=== PATIENT | female | born 1970 | race Caucasian/White ===

== ENCOUNTER 2022-07-27 16:56 | Inpatient (IN) | payer OTHER ==
[~2022-07-27] VITALS: Ht 160 cm; Wt 82.8 kg
[~2022-07-27 16:56] MED LIST: ALBIPROI INH; ALPR1 PO; AZIT500; BUPR100; BUPR150ER PO; BUPR75 PO; CARV3.125 PO; CEPH500 PO; CYCL10 PO; Carvedilol6.25 MG PO; DIVA500ER; DULO30; DULO60 PO; GABA300 PO; HYDACE10B; HYDACE5; HYDACE5 PO; HYDACE5325 PO; LOSARTAN POTASS25 MG PO; META800 PO; Norco 10-325 T1 EACH PO; OLAN5 PO; ONDA4ODT MM; OSEL75CA PO; PARO20; PARO25; PARO30; PRED10 PO; PROACE100 PO; Percocet 5-3251 EACH PO; ROFE25 PO; RXHYDACE PO; RXPROACE PO; RXPROM25S PR; SPACER IH; SPIR25 PO; SULTRIDS PO; TRAM50 PO; VENL75ER PO; Vistaril25 MG PO
[2022-07-27 18:24] LABS: Ethanol (Alcohol), Blood, Med <3 mg/dL; Free Thyroxine 0.79 ng/dL (0.70-1.60); Salicylate <1.7 mg/dL (2.8-20.0)
[2022-07-27 18:27] LABS: Acetaminophen, Random <2.0 ug/mL (10.0-30.0); Alanine Aminotransfer (ALT/SGP 23 U/L (12-78); Albumin, Blood 3.2 g/dL (3.4-5.0); Albumin/Globulin Ratio 0.9 (0.8-1.8); Alk Phos 90 U/L (50-136); Anion Gap 7 mmol/L (6-16); Aspartate Aminotrans (AST/SGOT 22 U/L (12-37); Bilirubin, Total 0.3 mg/dL (0.1-1.0); Blood Urea Nitrogen 16 mg/dL (8-24); Bun/Creatinine Ratio 19.6 (12.0-20.0); CO2, Blood 26 mmol/L (21-32); Calcium, Blood 8.8 mg/dL (8.5-10.1); Chloride, Blood 104 mmol/L (98-108); Creatinine, Blood 0.82 mg/dL (0.40-1.00); Globulin, Blood 3.4 g/dL (2.2-4.0); Glomerular Filtration Rate 86 (60-); Glucose, Blood 205 mg/dL (70-99); Potassium, Blood 4.3 mmol/L (3.5-5.5); Sodium, Blood 137 mmol/L (136-145); Total Protein, Blood 6.6 g/dL (6.4-8.2)
[2022-07-27 18:34] LABS: BASOPHILS PERCENT AUTO 1 % (0-2); EOSINOPHILS PERCENT AUTO 2 % (0-6); Hematocrit 40.4 % (33.0-51.0); Hemoglobin 12.5 g/dL (11.5-16.0); IMMATURE GRAN ABSOLUTE AUTO 0.05 K/mm3 (0.00-0.10); IMMATURE GRAN PERCENT AUTO 1 % (0-1); LYMPHOCYTES ABSOLUTE AUTO 2.76 K/mm3 (0.84-5.20); LYMPHOCYTES PERCENT AUTO 30 % (21-46); MONOCYTES ABSOLUTE AUTO 0.65 K/mm3 (0.16-1.47); MONOCYTES PERCENT AUTO 7 % (4-13); Mean Corpuscular HGB 25.1 pg (26.0-34.0); Mean Corpuscular HGB Conc 30.9 g/dL (31.5-36.5); Mean Corpuscular Volume 81 fL (80-100); Mean Platelet Volume 8.8 fL (9.1-12.4); NEUTROPHILS ABSOLUTE AUTO 5.61 K/mm3 (1.96-9.15); NEUTROPHILS PERCENT AUTO 60 % (41-73); Platelet Count 431 K/mm3 (150-400); RDW Coefficient Variation 15.8 % (11.7-14.2); RDW Standard Deviation 45.8 fL (35.1-46.3); Red Blood Cell Count 4.99 M/mm3 (3.80-5.20); White Blood Cell Count 9.37 K/mm3 (4.00-11.30)
[2022-07-27 20:03] LABS: Influenza A, PCR NEGATIVE (NEGATIVE); Influenza B, PCR NEGATIVE (NEGATIVE); Resp Syncytial Virus, PCR NEGATIVE (NEGATIVE); SARS-Cov-2 (COVID-19) PCR, MMC NEGATIVE (NEGATIVE)
[2022-07-27 21:12] LABS: PCO2 Venous 56.7 mmHg (38-42)
[2022-07-27 21:13] LABS: Base Excess Venous -1.1 mmol/L
[2022-07-27 21:14] LABS: pH Blood Venous 7.27 (7.34-7.37)
[2022-07-27 21:35] LABS: Glucose, Blood 179 mg/dL (70-99)
[2022-07-27 22:27] LABS: Glucose, Blood 143 mg/dL (70-99)
[2022-07-27 23:03] LABS: Glucose, Blood 125 mg/dL (70-99)
[2022-07-28 00:32] LABS: PCO2 Arterial 44.2 mmHg (35-45); PO2 Arterial 69.8 mmHg (80-100); pH Blood Arterial 7.36 (7.35-7.45)
--- NOTE | 2022-07-28 01:16 | NUR ---
PT ADMIT TO ICU 6: PT ADMISSION TO ICU 6 FROM ER; PT ARRIVED TO THE UNIT VIA GURNEY FROM THE ER AT 2234. THE PT HAD LEVOPHED RUNNING AT 1.33 MCG/KG/MIN AND NS GTT AT 100 MLS/HR UPON ARRIVAL. THE PT A&O X 4, BUT IS PERIODICALLY CONFUSED; REORIENTED EASILY. THE PT IS VERY DROWSY AND IS IN AND OUT OF SLEEP AT THIS TIME. THE PT SPEECH IS SLOW/SLURRED BUT APPROPRIATE. THE PT IS CALM AND COOPERATIVE WITH STAFF. PT EDUCATED ON THE 2 MD HOLD. THE PT IS CURRENTLY ON RA WITH RR 14-16 AND SPO2 92<; PT OCCASIONALLY DESATS TO 86-89 BUT RECOVERS QUICKLY. PT HAS EVEN, UNLABORED BREATHING PATTERN AT THIS TIME. PT HAS CONTINUOUS MANAGER DOMESTIC IN PLACE; HR IN THE 60'S, SBP 90-100'S, AND MAP 65<. LEVOPHED PUT ON SB AFTER PT TRANSFERRED TO NEW BED. PT HAS A SOFT, ROUND, NON-TENDER ABD WITH HYPOACTIVE BS PRESENT. PT COMPLAINS OF SLIGHT NAUSEA THAT SUBSIDES AND THEN RETURNS PERIODICALLY, BUT NO ACTIVE VOMITING AT THIS TIME. PT HAS WARM EXTREMITIES AND PPP X 4. PT HAS NOT BEEN ABLE TO GIVE A URINE SAMPLE, WILL CONTINUE TO ASSESS. PT EMOTIONAL AND EXPRESSES SADNESS AND DISAPPOINTMENT DIRECTED AT HERSELF; COMFORT MEASURES PROVIDED FOR PT. PT EXPRESSES CONCERNS TO THIS RN TO BE ABLE TO CALL HER EMPLOYER IN THE MORNING TO LET THEM KNOW ABOUT HER HOSPITILIZATION. PT BELONGINGS LOCKED UP UPON ARRIVAL. WILL CONTINUE TO MONITOR.
[2022-07-28 03:18] LABS: BASOPHILS PERCENT AUTO 1 % (0-2); EOSINOPHILS ABSOLUTE AUTO 0.26 K/mm3 (0.00-0.68); EOSINOPHILS PERCENT AUTO 3 % (0-6); Hematocrit 35.7 % (33.0-51.0); Hemoglobin 11.3 g/dL (11.5-16.0); IMMATURE GRAN ABSOLUTE AUTO 0.06 K/mm3 (0.00-0.10); IMMATURE GRAN PERCENT AUTO 1 % (0-1); LYMPHOCYTES ABSOLUTE AUTO 3.41 K/mm3 (0.84-5.20); LYMPHOCYTES PERCENT AUTO 34 % (21-46); MONOCYTES ABSOLUTE AUTO 0.62 K/mm3 (0.16-1.47); MONOCYTES PERCENT AUTO 6 % (4-13); Mean Corpuscular HGB 25.6 pg (26.0-34.0); Mean Corpuscular HGB Conc 31.7 g/dL (31.5-36.5); Mean Corpuscular Volume 81 fL (80-100); Mean Platelet Volume 8.6 fL (9.1-12.4); NEUTROPHILS PERCENT AUTO 56 % (41-73); Platelet Count 350 K/mm3 (150-400); RDW Coefficient Variation 15.8 % (11.7-14.2); RDW Standard Deviation 46.6 fL (35.1-46.3); Red Blood Cell Count 4.41 M/mm3 (3.80-5.20); White Blood Cell Count 10.15 K/mm3 (4.00-11.30)
[2022-07-28 03:29] LABS: Source, Urine Clean Catch
[2022-07-28 03:31] LABS: Bilirubin, Urine Neg (Neg); Blood, Urine Neg (Neg); Color, Urine Yellow (P-Yellow); Glucose Qualitative, Urine 1+ (Neg); Ketones, Urine Neg (Neg); Leukocyte Esterase, Urine Neg (Neg); Nitrite, Urine Neg (Neg); Protein, Urine Neg (Neg); Urobilinogen, Urine NORM (Normal)
[2022-07-28 03:33] LABS: Appearance, Urine Clear (Clear)
[2022-07-28 03:35] LABS: Albumin, Blood 2.7 g/dL (3.4-5.0); Anion Gap 4 mmol/L (6-16); Blood Urea Nitrogen 16 mg/dL (8-24); Bun/Creatinine Ratio 23.3 (12.0-20.0); CO2, Blood 27 mmol/L (21-32); Calcium, Blood 8.7 mg/dL (8.5-10.1); Chloride, Blood 111 mmol/L (98-108); Creatinine, Blood 0.69 mg/dL (0.40-1.00); Glomerular Filtration Rate 104 (60-); Glucose, Blood 121 mg/dL (70-99); Phosphorus, Blood 3.3 mg/dL (2.5-4.9); Potassium, Blood 4.5 mmol/L (3.5-5.5); Sodium, Blood 142 mmol/L (136-145)
[2022-07-28 05:12] LABS: U Amphetamine Screen DETECTED; U Barbituate Screen Not Detected; U Benzodiazapine Screen Not Detected; U Buprenorphine Screen DETECTED; U Cannabinoids Screen Not Detected; U Cocaine Screen Not Detected; U Methadone Screen Not Detected; U Methamphetamine Screen DETECTED; U Opiates Screen Not Detected; U Oxycodone Screen Not Detected; U Phencyclidine Screen Not Detected; U Propoxyphene Screen Not Detected
--- NOTE | 2022-07-28 06:10 | NUR ---
SHIFT SUMMARY: NO ACUTE CHANGES OVER NIGHT. THE PT REMAINS A&O 3-4; PT CONFUSED ABOUT DAY/TIME BUT REORIENTS EASILY. PT CONTINUES TO BE COOPERATIVE WITH CARE. PT WAS ABLE TO VOID ON THE BEDSIDE COMMODE THIS AM. PT HAS PASSED BEDSIDE SWALLOW EVAL AND HAS REGULAR DIET ORDERS IN PLACE. PT IN AND OUT OF SLEEP THROUGHOUT THE NIGHT. LEVOPHED SB SINCE COMING TO THE UNIT; SBP 90-110'S, HR 50-60, AND MAP 65<. PT REMAINS ON RA WITH SPO2 92< AND RR 14-16. POISEN CONTROL UPDATED ON PT'S STATUS BY THIS RN. WILL CONTINUE TO MONITOR UNTIL ONCOMING RN ARRIVES.
--- NOTE | 2022-07-28 18:36 | NUR ---
SUMMARY NEURO: WNL LUNGS: WNL CARCIAC: SINUS NIKOLAI 40-60'S. GI: WNL : WNL PSYCHOSOCIAL: SI RISK. INTERMITTENT TEARFULNESS. SITTER AT BEDSIDE. POISON CONTROL FOLLOWING, STATES WILL CALL IN AM.
--- NOTE | 2022-07-28 19:14 | NUR ---
UPDATE: REGINO, PT'S "RIANA", STOPPED BY AT 191 TO DROP OFF A BOOK AND PAIR OF GLASSES AND REQUESTED TO SEE PT. THIS RN NOTIFIED REGINO OF VISITING HOURS. PT STATED THAT HE " LEFT HER AT THE HOSPITAL" AFTER HER OD AND THAT SHE "DOESN'T KNOW HOW SHE FEELS ABOUT HIM GETTING ANY INFORMATION ABOUT HER STATUS. AT THIS TIME, REGINO CANNOT RECIEVE UPDATES PER PT.
--- NOTE | 2022-07-28 22:46 | NUR ---
ASSUMPTION OF CARE/ASSESSMENT: ASSUMED CARE OF PT AT 1900. PT IS A&O X 4; PERIODICALLY CONFUSED ABOUT EVENTS THAT LEAD HER TO HER HOSPITILIZATION BUT IS EASILY REORIENTED. THE PT EXPRESSES FEAR FOR HER SAFETY AND THIS RN EXPLAINED TO HER THE SAFETY MEASURES OF THE UNIT. PT EMOTIONAL ABOUT HER SITUATION AND HER STATUS WITH HER FIANCE. PT STATING THAT SHE IS SEEING "POWER TOOLS OUTSIDE THE DOOR AND NO OTHER PT'S" THIS IS MAKING THE PT UNEASY AND IS WORRIED THE STAFF IS NOT TELLING HER THE WHOLE STORY. PT IS REORIENTED AND CALMS DOWN. PT ON RA WITH CLEAR LUNG SOUNDS THROUGHOUT WITH SPO2 92< AND RR 16-18. PT HR IN THE 50'S WITH SBP 110'S, MAP 65<; CONTINUOUS PIPE SMOKER MACHINE OPERATOR IN PLACE. PT HAS REG DIET WITH SOFT, ROUND ABD AND HYPERACTIVE BS IN ALL FOUR QUADRANTS. PT USING BEDSIDE COMMODE FOR VOIDING. WARM EXTREMIITES WITH PPP X 4. CALL LIGHT IN REACH, WILL CONTINUE TO MONITOR.
[2022-07-29 03:42] LABS: BASOPHILS ABSOLUTE AUTO 0.09 K/mm3 (0.00-0.23); BASOPHILS PERCENT AUTO 1 % (0-2); EOSINOPHILS ABSOLUTE AUTO 0.21 K/mm3 (0.00-0.68); EOSINOPHILS PERCENT AUTO 2 % (0-6); Hematocrit 35.5 % (33.0-51.0); Hemoglobin 11.2 g/dL (11.5-16.0); IMMATURE GRAN ABSOLUTE AUTO 0.09 K/mm3 (0.00-0.10); IMMATURE GRAN PERCENT AUTO 1 % (0-1); LYMPHOCYTES ABSOLUTE AUTO 2.21 K/mm3 (0.84-5.20); LYMPHOCYTES PERCENT AUTO 22 % (21-46); MONOCYTES ABSOLUTE AUTO 0.58 K/mm3 (0.16-1.47); MONOCYTES PERCENT AUTO 6 % (4-13); Mean Corpuscular HGB 25.4 pg (26.0-34.0); Mean Corpuscular HGB Conc 31.5 g/dL (31.5-36.5); Mean Corpuscular Volume 81 fL (80-100); Mean Platelet Volume 8.7 fL (9.1-12.4); NEUTROPHILS ABSOLUTE AUTO 6.69 K/mm3 (1.96-9.15); NEUTROPHILS PERCENT AUTO 68 % (41-73); NRBC ABSOLUTE 0.02 K/mm3 (0.00-0.02); NRBC Auto 0.2 /100 WBC (0.0-0.2); Platelet Count 327 K/mm3 (150-400); RDW Coefficient Variation 15.5 % (11.7-14.2); RDW Standard Deviation 45.1 fL (35.1-46.3); Red Blood Cell Count 4.41 M/mm3 (3.80-5.20); White Blood Cell Count 9.87 K/mm3 (4.00-11.30)
[2022-07-29 04:04] LABS: Bun/Creatinine Ratio 15.5 (12.0-20.0); Calcium, Blood 8.5 mg/dL (8.5-10.1); Creatinine, Blood 0.71 mg/dL (0.40-1.00); Potassium, Blood 4.2 mmol/L (3.5-5.5)
--- NOTE | 2022-07-29 06:19 | NUR ---
SHIFT SUMMARY: NO ACUTE CHANGES THIS SHIFT. PT NEURO STATUS REMAINS THE SAME; PT DISPLAYS PERIODS OF CONFUSION THROUGHOUT THE NIGHT THAT IS ACCOMPANIED BY EMOTIONS OF FEAR AND SADNESS. PT IS EASILY CONSOLIBLE. PT CONTINUOUS TO BE COOPERATIVE WITH CARE. HR IN THE 50-60'S WIHT A FEW INSTANCES WHERE IS DROPPED DOWN IN THE 40'S BUT RECOVERED QUICKLY BACK TO THE 50'S. PT SBP 120'S AND MAP 65<. PT HAS NS GTT 100 MLS/HR THROUGHOUT THE SHIFT. WILL CONTINUE TO MONITOR UNTIL ONCOMING RN ARRIVES.
--- NOTE | 2022-07-29 07:00 | NUR ---
Assumed care of pt at 0700 Pt resting. Is on suicide precautions with sitter at bedside and camera on to maintain safety. Continues to need reorientation after waking but reportedly reorients quickly. Expect psych MD hinds today. RN to continue to monitor.
--- NOTE | 2022-07-29 14:57 | NUR ---
0815 DR. IZAGUIRRE TO BEDSIDE. REPORTED PT'S MILD NAUSEA, MD WILL ENTER ORDERS. 0930 DR. RODRIGUEZ TO BEDSIDE. NO NEW ORDERS AT THIS TIME. HE WOULD LIKE TO BE NOTIFIED AFTER NEXT POISON CONTROL CALL. 1200 POISON CONTROL UPDATED WITH CURRENT V/S, NEURO STATUS AND LABS. DISCUSSED HOME MEDICATIONS AND RECEIVED GUIDANCE ON RESTARTING MEDS. DISCUSSED RECOMMENDATIONS WITH DR. RODRIGUEZ, HE WILL AWAIT DR. ALEXANDER'S EVALUATION BEFORE STARTING HOME MEDS. POISON CONTROL WILL CALL FOR UPDATE AT 1800. HAND TUBE WINDER UPDATED WITH PLAN. BROTHER AT BEDSIDE TO VISIT X3 TODAY. RN TO CONTINUE TO MONITOR.
--- NOTE | 2022-07-29 16:01 | NUR ---
DR. ALEXANDER AT BEDSIDE
--- NOTE | 2022-07-29 17:39 | NUR ---
END OF SHIFT SUMMARY PT SLEPT MOST OF SHIFT. ALERT AND ORIENTED X4. NO BEHAVIORS NOTED. SITTER AT BEDSIDE DURING HIGH SUICIDE PRECAUTIONS. EVERY 2 HOUR NEURO CHECKS D/C'D BY MD. 02SAT > 95% ON ROOM AIR DECLINED BREAKFAST AND LUNCH. ATE 30% OF DINNER. VOIDS WITH STANBY ASSIST TO THE COMMODE. SKIN INTACT NS @ 100ML/HR INTO PIV. BROTHER IN TO VISIT THROUGHOUT THE DAY. ALSO PRESENT DURING VISIT WITH DR. ALEXANDER. SUICIDE PRECAUTIONS D/C'D. PT REMAINS ON 2 MD HOLD UNTIL TOMORROW. STATUS CHANGED TO PCU. POISON CONTROL WILL CONTINUE TO FOLLOW EVERY 4-6 HOURS.
[2022-07-30 04:58] LABS: BASOPHILS ABSOLUTE AUTO 0.07 K/mm3 (0.00-0.23); BASOPHILS PERCENT AUTO 1 % (0-2); EOSINOPHILS ABSOLUTE AUTO 0.21 K/mm3 (0.00-0.68); EOSINOPHILS PERCENT AUTO 2 % (0-6); Hematocrit 35.9 % (33.0-51.0); Hemoglobin 11.2 g/dL (11.5-16.0); IMMATURE GRAN ABSOLUTE AUTO 0.13 K/mm3 (0.00-0.10); IMMATURE GRAN PERCENT AUTO 1 % (0-1); LYMPHOCYTES PERCENT AUTO 21 % (21-46); MONOCYTES ABSOLUTE AUTO 0.66 K/mm3 (0.16-1.47); MONOCYTES PERCENT AUTO 7 % (4-13); Mean Corpuscular HGB 25.1 pg (26.0-34.0); Mean Corpuscular HGB Conc 31.2 g/dL (31.5-36.5); Mean Corpuscular Volume 80 fL (80-100); Mean Platelet Volume 9.3 fL (9.1-12.4); NEUTROPHILS ABSOLUTE AUTO 6.75 K/mm3 (1.96-9.15); NEUTROPHILS PERCENT AUTO 68 % (41-73); NRBC ABSOLUTE 0.02 K/mm3 (0.00-0.02); NRBC Auto 0.2 /100 WBC (0.0-0.2); Platelet Count 324 K/mm3 (150-400); RDW Coefficient Variation 15.7 % (11.7-14.2); RDW Standard Deviation 45.3 fL (35.1-46.3); Red Blood Cell Count 4.47 M/mm3 (3.80-5.20); White Blood Cell Count 9.92 K/mm3 (4.00-11.30)
[2022-07-30 05:22] LABS: Albumin, Blood 2.7 g/dL (3.4-5.0); Albumin/Globulin Ratio 0.8 (0.8-1.8); Bilirubin, Total 0.4 mg/dL (0.1-1.0); Bun/Creatinine Ratio 11.8 (12.0-20.0); Calcium, Blood 8.2 mg/dL (8.5-10.1); Creatinine, Blood 0.76 mg/dL (0.40-1.00); Globulin, Blood 3.3 g/dL (2.2-4.0); Potassium, Blood 3.6 mmol/L (3.5-5.5)
--- NOTE | 2022-07-30 05:55 | NUR ---
SHIFT SUMMARY PATIENT IS ALERT AND ORIENTED X4. PLEASANT AND COOPERATIVE WITH CARE. 02 SATS 93% ON 2L VIA NC WHILE SLEEPING, LS CLEAR AND DENIES SOB. HR SB-SR 50-60s, BP STABLE, DENIES CP/PRESSURE. UP TO TOILET SBA. MEDICATED FOR NAUSEA ONCE THIS SHIFT. SLEPT MOST THE NIGHT. CALL LIGHT IN REACH.
[2022-07-30] MEDS ORDERED: OMEP20ER PO (11:57)
[2022-07-30] MEDS ORDERED: TIZA4 PO (11:57)
--- NOTE | 2022-07-30 14:15 | NUR ---
Spiritual Care Visit. Pt. is awake in bed and welcomes my visit. Pt. is pleasant and is awaiting discharge. Pt. is unsettled about life choices she will need to make when she is discharged. Listen empathetically with a calming presence. Pt. displays evidence of trust, and verbalizes some of her life concerns. Pt. denies being fearful. Pt. is appropriately cathartic throughout the visit. Prayed with Pt. Pt. verbalizes gratitude for the spiritual care visit.
--- NOTE | 2022-07-30 16:21 | NUR ---
DISCHARGE ALL DISCHARGE INSTRUCTIONS REVIEWED WITH PT AND PT VERBALIZED UNDERSTANDING. IV'S DISCONTINUED. PT DRESSED SELF. PT WALKED OUT OF THE ICU TO FRIENDS CAR WITHOUT DIFFICULTY. ALL PT BELONGINGS SENT WITH PT.
== END 2022-07-30 16:32 | disposition home or self-care (01) | DRG 917 ==
LOC: ER 16:56 → EOR 16:57 → ICUE 16:57 → ER 16:57 → ICUE 16:57 → EDBEDREQ 21:54 → ICUE 22:30 → EOR 22:30 → ICUE 22:31 → ER 22:39 → ICUW 07-28 00:20 → ICUE 07-28 00:20 → ICUW 07-28 00:20 → ICUE 07-29 17:50 → ICUW 07-30 07:49
PROVIDERS: Physician Assistant; Student in an Organized Health Care Education/Training Program; ADMIT Family Medicine
PROC: 3E033XZ Introduction of Vasopressor into Peripheral Vein, Percutaneous Approach (ICD-10-PCS; principal; 2022-07-28)
DX: T46.1X2A Poisoning by calcium-channel blockers, intentional self-harm, initial encounter (principal); G92.9 Unspecified toxic encephalopathy; I42.9 Cardiomyopathy, unspecified; T44.7X2A Poisoning by beta-adrenoreceptor antagonists, intentional self-harm, initial encounter; I95.2 Hypotension due to drugs; F15.10 Other stimulant abuse, uncomplicated; Z88.1 Allergy status to other antibiotic agents; Z88.8 Allergy status to other drugs, medicaments and biological substances; F17.210 Nicotine dependence, cigarettes, uncomplicated; Z79.899 Other long term (current) drug therapy; Z20.822 Contact with and (suspected) exposure to COVID-19; R41.82 Altered mental status, unspecified
CPT/HCPCS: 0241U; 36415; 36600; 80048; 80053; 80069; 81003; 82803; 82947; 83735; 84439; 84443; 85025; 93005; 93010; 96361; 96365; 96367; 96375; 99291-25; 99292; A9270; G0480; J0610; J1610; J1650; J2310; J2405; J7030; J7060

== ENCOUNTER 2025-02-17 17:23 | Observation (INO) | payer OTHER ==
[~2025-02-17] VITALS: Ht 160 cm; Wt 68.0 kg
[~2025-02-17 17:23] MED LIST changes: +OMEP20ER PO; +TIZA4 PO
[2025-02-17 18:35] LABS: BASOPHILS ABSOLUTE AUTO 0.08 K/mm3 (0.00-0.23); BASOPHILS PERCENT AUTO 1 % (0-2); EOSINOPHILS ABSOLUTE AUTO 0.11 K/mm3 (0.00-0.68); EOSINOPHILS PERCENT AUTO 1 % (0-6); Hematocrit 43.3 % (33.0-51.0); Hemoglobin 13.8 g/dL (11.5-16.0); IMMATURE GRAN ABSOLUTE AUTO 0.02 K/mm3 (0.00-0.10); IMMATURE GRAN PERCENT AUTO 0 % (0-1); LYMPHOCYTES ABSOLUTE AUTO 2.71 K/mm3 (0.84-5.20); LYMPHOCYTES PERCENT AUTO 35 % (21-46); MONOCYTES ABSOLUTE AUTO 0.61 K/mm3 (0.16-1.47); MONOCYTES PERCENT AUTO 8 % (4-13); Mean Corpuscular HGB 25.7 pg (26.0-34.0); Mean Corpuscular HGB Conc 31.9 g/dL (31.5-36.5); Mean Corpuscular Volume 81 fL (80-100); Mean Platelet Volume 9.1 fL (9.1-12.4); NEUTROPHILS ABSOLUTE AUTO 4.29 K/mm3 (1.96-9.15); NEUTROPHILS PERCENT AUTO 55 % (41-73); Platelet Count 247 K/mm3 (150-400); RDW Coefficient Variation 14.7 % (11.7-14.2); RDW Standard Deviation 43.3 fL (35.1-46.3); Red Blood Cell Count 5.37 M/mm3 (3.80-5.20); White Blood Cell Count 7.82 K/mm3 (4.00-11.30)
[2025-02-17] MEDS ORDERED: Acetaminophen 500 MG Tab PO ONE (19:50)
[2025-02-17 20:19] LABS: Ethanol (Alcohol), Blood, Med <3 mg/dL
[2025-02-17 20:22] LABS: Alanine Aminotransfer (ALT/SGP 22 U/L (12-78); Albumin, Blood 3.9 g/dL (3.4-5.0); Albumin/Globulin Ratio 1.2 (0.8-1.8); Alk Phos 105 U/L (50-136); Anion Gap 9 mmol/L (3-11); Aspartate Aminotrans (AST/SGOT 15 U/L (12-37); Bilirubin, Total 0.7 mg/dL (0.1-1.0); Blood Urea Nitrogen 10 mg/dL (8-24); Bun/Creatinine Ratio 10.1 (12.0-20.0); CO2, Blood 26 mmol/L (21-32); Chloride, Blood 106 mmol/L (98-108); Creatinine, Blood 0.99 mg/dL (0.40-1.00); Globulin, Blood 3.3 g/dL (2.2-4.0); Glomerular Filtration Rate 67 (60-); Glucose, Blood 81 mg/dL (70-99); Potassium, Blood 3.4 mmol/L (3.5-5.5); Salicylate <1.7 mg/dL (2.8-20.0); Sodium, Blood 138 mmol/L (136-145); Total Protein, Blood 7.2 g/dL (6.4-8.2)
[2025-02-17 20:47] LABS: Acetaminophen, Random <2.0 ug/mL (10.0-30.0)
[2025-02-17] MEDS ORDERED: Loperamide HCl 2 MG Cap PO ONE (23:45)
[2025-02-18] MEDS ORDERED: Acetaminophen 500 MG Tab PO ONE
[2025-02-18 00:17] LABS: Source, Urine Clean Catch
[2025-02-18 00:20] LABS: Blood, Urine Neg (Neg); Glucose Qualitative, Urine Neg (Neg); Ketones, Urine 1+ (Neg); Leukocyte Esterase, Urine 1+ (Neg); Nitrite, Urine Neg (Neg); Protein, Urine 2+ (Neg); Urobilinogen, Urine NORM (Normal)
[2025-02-18 00:22] LABS: Bilirubin, Urine Neg (Neg)
[2025-02-18 00:31] LABS: Appearance, Urine Clear (Clear); Color, Urine Yellow (P-Yellow)
[2025-02-18 00:32] LABS: Amorphous Light (0-Heavy); Bacteria Many /hpf; Red Blood Cells, Urine 0-2 /hpf (0-2); Squamous Epithelial Cells Many /hpf (Few); White Blood Cells, Urine 0-2 /hpf (0-5)
[2025-02-18 00:33] LABS: U Amphetamine Screen Not Detected; U Barbituate Screen Not Detected; U Benzodiazapine Screen Not Detected; U Buprenorphine Screen DETECTED; U Cannabinoids Screen DETECTED; U Cocaine Screen Not Detected; U Methadone Screen Not Detected; U Methamphetamine Screen Not Detected; U Opiates Screen Not Detected; U Oxycodone Screen Not Detected; U Phencyclidine Screen Not Detected
[2025-02-18] MEDS ORDERED: Loperamide HCl 2 MG Cap PO ONE (15:45)
[2025-02-18] MEDS ORDERED: HyDROXyzine HCl 25 MG Tab PO ONE (17:10)
[2025-02-19 09:16] VITALS: BP 130/85
[2025-02-19] MEDS ORDERED: TIZA4 PO (09:53)
[2025-02-19] MEDS ORDERED: ABILIFY MYCITE10 M2 PO (09:53)
== END 2025-02-19 09:18 | disposition other institution (70) ==
LOC: ER 17:23 → EOR 17:24 → ER 22:00 → EOR 22:52 → ER 22:52 → EDBEDREQDT 02-19 08:16 → EDBEDREQ 02-19 08:16 → EDBEDREQTM 02-19 08:16 → EDBEDREQSVC 02-19 08:16 → EOR 02-19 09:18
PROVIDERS: Student in an Organized Health Care Education/Training Program; ADMIT Emergency Medicine
DX: T42.6X2A Poisoning by other antiepileptic and sedative-hypnotic drugs, intentional self-harm, initial encounter (principal); T42.8X2A Poisoning by antiparkinsonism drugs and other central muscle-tone depressants, intentional self-harm, initial encounter
CPT/HCPCS: 70450; 73030; 80053; 80320; 81001; 81025; 85025; 87086; 93005; 93010; 99285-25; A9270; G0378; G0480; P9612

== ENCOUNTER 2025-02-18 12:48 | Inpatient (IN) | payer OTHER ==
[~2025-02-18] VITALS: Ht 160 cm; Wt 68.2 kg
[2025-02-19] MEDS ORDERED: Polyethylene Glycol 3350 17 gm PO PRN (09:10)
[2025-02-19] MEDS ORDERED: Melatonin 3 MG Tab PO PRN (09:10)
[2025-02-19] MEDS ORDERED: Aluminum Hydroxide 320MG/5ML 473 ML PO PRN (09:15)
[2025-02-19] MEDS ORDERED: OLANZapine ODT 10 MG Tab MM PRN (09:15)
[2025-02-19] MEDS ORDERED: Ondansetron 4 MG SoluTab MM PRN (09:15)
[2025-02-19] MEDS ORDERED: TraZODone HCl 50 MG Tab PO PRN (09:15)
[2025-02-19] MEDS ORDERED: Ibuprofen 600 MG Tab PO PRN (09:15)
[2025-02-19] MEDS ORDERED: Acetaminophen 325 MG TABLET PO PRN (09:15)
[2025-02-19] MEDS ORDERED: Calcium Carbonate 500 MG Tab Chew PO PRN (09:20)
[2025-02-19] MEDS ORDERED: HydrOXYzine Pamoate 50 MG Cap PO PRN (09:20)
[2025-02-19 09:35] VITALS: BP 111/77
[2025-02-19] MEDS ORDERED: ABILIFY MYCITE10 M2 PO (09:53)
[2025-02-19] MEDS ORDERED: TIZA4 PO (09:53)
[2025-02-19] MEDS ORDERED: buPROPion HCL 150 MG TAB.SR.12H PO SCH ×2 (10:00→12:00)
[2025-02-19 10:20] LABS: CHOL/HDL RATIO 3.6; Cholesterol 197 mg/dL (50-200); HDL Cholesterol 54 mg/dL (>39); LDL/HDL RATIO 2.3; Low Density Lipoprotein Chol 124 mg/dL (0-110); Triglycerides 96 mg/dL (30-160); Very Low Density Lipoprot Chol 19 mg/dL (6-32)
[2025-02-19 10:27] VITALS: BP 111/77
--- NOTE | 2025-02-19 10:58 | NUR ---
ADMIT NOTE: PT ADMITTED TO [facility] FROM [facility] ER. PT IS ALERT, ORIENTED AND COOPERATIVE WITH CARE AT THIS TIME. SHE DENIES SI, HI AND AVH AT THIS TIME. STATES THAT SHE HAS BEEN HEARING VOICES SINCE USING METH. STATES THAT SHE STARTED USING AGAIN IN JULY BUT STOPPED IN DECEMBER STATES THAT THE VOICES USUALLY STOP WHEN SHE STOPS USING METH BUT THEY DIDN'T THIS TIME. STATES THAT THE VOICES SAY "TERRIBLE THINGS" . STATES THAT THEY DON'T TALK DIRECTLY TO HER BUT SAY THINGS SHE CAN HEAR. PT STATES THAT SHE IS CURRENTLY LIVING IN TRANSITIONAL HOUSING THROUGH [facility].
[2025-02-19] MEDS ORDERED: TiZANidine HCl 4 MG Tab PO PRN (11:10)
[2025-02-19] MEDS ORDERED: Nicotine Polacrilex 2 MG Gum PO PRN (12:00)
--- NOTE | 2025-02-19 13:04 | NUR ---
ADDITIONAL ADMIT NOTE: PT STATED THAT SHE WAS DISCHARGED FROM [facility] ABOUT 2 WEEKS AGO.
[2025-02-19] MEDS ORDERED: Gabapentin 300 MG Cap PO SCH (14:00)
--- NOTE | 2025-02-19 17:38 | NUR ---
SHIFT SUMMARY: PT ALERT, ORIENTED AND COOPERATIVE WITH CARE. DENIES SI, HI AND AVH. PT WAS MEDICATED WITH IBUPROFEN PER EMAR FOR C/O HEADACHE. SPENT MUCH OF THE DAY RESTING IN BED BUT WAS PRESENT IN THE DAY ROOM AND ENGAGED IN UNIT MILIEU. PT ATTENDED MEALS AND WAS COMPLIANT WITH MEDICATIONS,
[2025-02-19 20:00] VITALS: BP 117/80
--- NOTE | 2025-02-20 05:51 | NUR ---
SHIFT SUMMARY NO ACUTE EVENTS THIS EVENING. PT DENIES, SI, HI, AVTH. SLEEPING AT START OF SHIFT, WENT TO SNACKTIME, THEN WENT BACK TO ROOM. CAME TO ASK FOR PRN FOR ANXIETY AND FOR MUSCLE RELAXER. NO ACUTE EVENTS SINCE THEN. PT PLEASANT AND COOPERATIVE.
[2025-02-20 08:22] VITALS: BP 112/64
[2025-02-20] MEDS ORDERED: Nicotine 21 MG PATCH TOP SCH (09:00)
[2025-02-20] MEDS ORDERED: ARIPiprazole 10 MG Tab PO SCH (09:00)
[2025-02-20] MEDS ORDERED: Multivitamins 1 Tab PO SCH (09:00)
--- NOTE | 2025-02-20 13:23 | NUR ---
DR. BOLANOS SPOKE WITH PATIENT REGARDING MEDICATION CHANGES. PT VERBALIZED FRUSTRATION R/T DULOXETINE BEING DISCONTINUED. PROVIDER DISCUSSED THE RISK OF STROKE WITH THE COMBINATION OF DULOXETINE AND WELBUTRIN. PT APPEARED TO BE UPSET AND BECAME TEARFUL WHILE TALKING. STATES THAT SHE IS CONCERNED THAT HER FIBROMYALGIA WILL BECOME WORSE AGAIN. STATES THAT SHE DOESN'T WANT TO BE IN THE AMOUNT OF PAIN SHE HAD BEEN BEFORE BEING BEING PUT ON THE COMBINATION. PROVIDER AND PT AGREED ON STARTING A DIFFERENT COMBINATION.
[2025-02-20] MEDS ORDERED: DULoxetine HCL 60 MG Capsule DR PO SCH (16:30)
--- NOTE | 2025-02-20 17:24 | NUR ---
SHIFT SUMMARY: PT ALERT, ORIENTED AND COOPERATIVE WITH CARE. DENIED SI, HI AND AVH. SHE WAS PRESENT FOR MEALS AND ACTIVE IN MILIEU. SPENT TIME IN THE DAY ROOM WATCHING TV AND VISITING WITH PEERS. NOTED IN DR. SALAZAR PROGRESS NOTE THAT HE HAS DECIDED TO ORDER DULOXETINE. SEE HIS NOTE FOR FURTHER INFORMATION. WILL MEDICATE PATIENT PER ORDERS.
[2025-02-20 20:00] VITALS: BP 138/68
--- NOTE | 2025-02-21 04:44 | NUR ---
SHIFT SUMMARY: PATIENT WAS IN THE MILIEU INTERACTING WITH STAFF AND PEERS AT THE BEGINNING OF THE SHIFT. SHE STATED SHE HAD A "GOOD DAY" AND GOT TO PLAY A GAME WITH ROOMMATE AND PEER. SHE DENIED SUICIDAL IDEATION, THOUGHTS OF SELF HARMING AND A/V HALLUCINATIONS. SHE PARTICIPATED IN SNACK AND WRAP UP GROUP AT 1999 IN THE DINING AREA. SHE WENT TO HER ROOM WITH HER ROOMMATE AFTER SNACK. SHE WAS COMPLIANT WITH EVENING MEDICATIONS, AND HAD NO NEEDS OR CONCERNS NOTED THIS SHIFT. SHE AND HER ROOMMATE TALKED QUIETLY IN THE DARK FOR A TIME, THEN SHE WAS NOTED TO BE RESTING QUIETLY WITH EYES CLOSED AND RESPIRATIONS CONFIRMED FOR THE REMAINDER OF THE SHIFT. CONTINUING TO MONITOR FOR SAFETY WITH Q15 MINUTE CHECKS.
[2025-02-21 08:25] VITALS: BP 113/72
[2025-02-21 16:12] VITALS: BP 102/78
--- NOTE | 2025-02-21 16:55 | NUR ---
SHIFT SUMMARY PT AxOx4. PLEASANT AND COOPERATIVE WITH CARE. PT REPORTS GOOD MOOD THIS AM AND DENIED SI/HI AND AVTH DURING AM ASSESSMENT. SHE HAS BEEN FOLLOWING HER TREATMENT PLAN INCLUDING TAKING MEDICATIONS PRESCRIBED, ATTENDING ALL MIL[place]U THERAPY GROUPS AND MINGLING APPROPRIATELY WITH STAFF/PEERS. PT REPORTS FEELING HOPEFUL TO DC BY FRIDAY SHE HAS A DOCTOR'S APPOINTMENT SHE DOES NOT WANT TO MISS. PT ALSO REPORTED FEELING LIKE SHE HAD A MIGRAINE COMING ON AROUND 1600. PT WAS MEDICATED PER EMAR WITH REPORTED RELIEF. SHE WAS ALSO MEDICATED x1 FOR ANXIETY THIS SHIFT. SHE IS CURRENTLY LYING IN HER BED CALMLY RESTING.
[2025-02-21 20:20] VITALS: BP 125/75
[2025-02-21] MEDS ORDERED: ARIPiprazole 10 MG Tab PO SCH (21:00)
--- NOTE | 2025-02-21 22:39 | NUR ---
MIDSHIFT SUMMARY FOR REPORT OFF: PT MOOD IMPROVED PRIOR TO BED. WAS LAUGHING AND CONVERSING WITH ROOMMATE. PARTICIPATED IN SNACK TIME AND WAS ALSO WALKING IN HALLWAYS PRIOR TO BED. HAS BEEN LAYING IN BED WITH DEEP, EVEN RESPIRATIONS SINCE TURNED LIGHTS OUT. EXPRESSED NO FURTHER NEEDS PRIOR TO FALLING ASLEEP.
--- NOTE | 2025-02-22 04:15 | NUR ---
SHIFT SUMMARY: PATIENT WAS TAKEN OVER AT 2345 FROM [facility]. SHE WAS IN BED AT THIS TIME, RESTING QUIETLY WITH EYES CLOSED AND RESPIRATIONS CONFIRMED. SHE CONTINUED IN THIS MANNER FOR THE REMAINDER OF THE SHIFT, WITH NO NEEDS OR CONCERNS NOTED. SHE TOLD [facility] DURING DAY ROOM TIME THAT SHE HEARS A VOICE IN HER APARTMENT, AND SOMETIMES IT GOES ACROSS THE STREET, BUT SHE CAN STILL HEAR IT. SHE STATED THAT SHE DOES NOT WANT TO GO BACK TO HER APARTMENT BECAUSE OF THIS VOICE. SHE STATED THAT SHE HAS NOT TOLD HER DOCTOR. SHE WAS ENCOURAGED TO DO SO, BUT UNKNOWN IF SHE WILL. CONTINUING TO MONITOR FOR SAFETY WITH Q15 MINUTE CHECKS.
[2025-02-22 08:07] VITALS: BP 128/76
--- NOTE | 2025-02-22 16:33 | NUR ---
SHIFT SUMMARY PT A/O X4 AND FOLLOWS PLAN OF CARE. PT DENIED SI, HI, AVH THIS AM; BUT REPORTED AH THIS AFTERNOON. SHE SAYS THAT THE HALLUCINATIONS ARE NON-COMMANDING BUT ARE DELUSIONAL/PARANOID IN NATURE. SHE SAYS THAT THE VOICES TALK ABOUT HER PLAN OF CARE AND WHY SHE IS IN THE U, BUT IN A DEROGATORY MANNER. PT MEDICATED PER EMR AND ABILIFY INCREASED. SHE ATTENDED ALL GROUPS AND MEALS THIS SHIFT. SHE CONTINUES TO BE MONITORED Q15 FOR SAFETY AND WELLNESS.
[2025-02-22 19:16] VITALS: BP 108/67
[2025-02-22] MEDS ORDERED: ARIPiprazole 10 MG Tab PO SCH (21:00)
--- NOTE | 2025-02-23 04:44 | NUR ---
SHIFT SUMMARY PATIENT OUT IN COURTYARD VISITING WITH PEERS. VERBALIZED CONTINUES TO FEEL ANXIOUS, DESPITE PRN MEDICATIONS GIVEN ON DAY SHIFT. DENIES SI, HI, OR VH. AH CONTINUE DESCRIBED VOICES TALKING TO EACH OTHER, NOT COMMANDING. VERBALIZED TALKING WITH PEERS HELPS TO DISTRACT FROM THE VOICES. PATIENT ALSO C/O GENERALIZED PAIN FROM FIBROMYALGIA FLARE, MEDICATED WITH IBUPROFEN AT 1600. PATIENT ABLE TO FALL TO SLEEP BEFORE 2200. PATIENT APPEARS TO BE SLEEPING WELL T/O NIGHT, RESP EVEN AND UNLABORED. CONTINUE TO MONITOR Q15MIN
[2025-02-23 08:40] VITALS: BP 126/83
--- NOTE | 2025-02-23 13:18 | NUR ---
IMPORTANT DISCHARGE NOTES [facility] TO PICK PATIENT UP ON 02/24/25 AROUND 1PM VIA PATIENT'S REQUEST. FOLLOW UP APPOINTMENTS WITH: PCP DR. PRINGLE ON 03/08/25 AT 9AM FOR POST FOLLOW UP APPOINTMENT. FOLLOW UP MENTAL HEALTH WITH LAMIN RIDER ON 03/09/25 FOR POST HOSPITAL FOLLOW UP. PHRMACY: [id number]
[2025-02-23] MEDS ORDERED: BUPR150ER PO (14:25)
--- NOTE | 2025-02-23 17:40 | NUR ---
SHIFT SUMMARY: PT ALERT, ORIENTED AND COOPERATIVE WITH CARE. PT DENIES SI, HI AND AVH. STATES THAT SHE SLEPT WELL. PT BECAME ANXIOUS AND AGGITATED WHEN DISCUSSING HER DISCHARGE. PT TEARFUL AND RAISING HER VOICE. DISCUSSED THE DISCHARGE PROCESS WITH PT AND PLAN FOR DISCHARGE 02/24/35. PT REQUESTED MEDICATION TO HELP CALM HER. SHE WAS MEDICATED PER EMAR. PT CALMED AND WAS PRESENT ON THE UNIT. ATTENDED GROUPS AND MEALS. SHE WAS ACTIVE IN MILIEU. SPENT TIME TALKING WITH PEERS AND STAFF.
[2025-02-23 20:27] VITALS: BP 89/61
--- NOTE | 2025-02-24 04:29 | NUR ---
SHIFT SUMMARY EARLY IN SHIFT PATIENT REQUESTING HER NIGHT MEDICATIONS SO SHE CAN GO TO BED EARLY. PATIENT BECOMING FRUSTRATED WHEN INFORMED THAT HER ZANAFLEX WOULD NOT BE ABLE TO BE GIVEN UNTIL 2300 DUE TO HER GETTING A DOSE AT 1545. PATIENT DID NOT WANT TO BE WOKEN UP FOR THE ZANAFLEX. ZYPREXA GIVEN FOR MASS 5. IBUPROFEN GIVEN FOR GENERALIZED PAIN 04/07. PATIENT DENIES SI, HI, OR AVH. VERBALIZED THAT SHE HAS NOT HAD AUDITORY HALLUCINATIONS SINCE RELINER. PATIENT GOING TO BED BEFORE SNACK TIME, APPEARS TO BE SLEEPING WELL T/O NIGHT RESP EVEN AND UNLABORED. CONTINUE TO MONITOR Q15MIN.
--- NOTE | 2025-02-24 13:08 | NUR ---
DISCHARGE NOTE PT AxOx4. PLEASANT AND COOPERATIVE WITH CARE. PT IS DISCHARGING HOME TODAY. SHE HAS BEEN FOLLOWING HER TREATMENT PLAN INCLUDING TAKING HER MEDICATIONS PRESCRIBED, ATTENDING ALL [place] THERAPY GROUPS AND MINGLING APPROPRIATELY WITH PEERS/STAFF ON UNIT. DC INSTRUCTIONS DISCUSSED INCLUDING FOLLOW UP APPT INFO, NEW RX MEDICATIONS AND PATIENT EDUCATION ON DIAGNOSES. PT VERBALIZED UNDERSTANDING. INVOLUNTARY HOLD RELEASE SIGNED BY PROVIDER TODAY. SAFETY PLAN COMPLETED WITH [employer] INSPECTOR TESTER. HER BELONGINGS WERE RETURNED AND RX'S FAXED TO [facility]. PT'S [employer]AXI RIDE ARRIVED FOR TRANSPORT AT 1300 AND SHE WAS SAFELY ESCORTED OUT WITH A.
== END 2025-02-24 13:00 | disposition home or self-care (01) | DRG 885 ==
LOC: BHU 12:48
PROVIDERS: ADMIT Student in an Organized Health Care Education/Training Program
DX: F33.2 Major depressive disorder, recurrent severe without psychotic features (principal); G89.29 Other chronic pain; Z56.0 Unemployment, unspecified; Z88.1 Allergy status to other antibiotic agents; Z88.8 Allergy status to other drugs, medicaments and biological substances; F17.210 Nicotine dependence, cigarettes, uncomplicated; F12.90 Cannabis use, unspecified, uncomplicated
CPT/HCPCS: 36415; 80061; 83036; A9270

== ENCOUNTER 2025-06-02 17:37 | Observation (INO) | payer OTHER ==
[~2025-06-02] VITALS: Ht 160 cm; Wt 68.0 kg
[~2025-06-02 17:37] MED LIST changes: +ABILIFY MYCITE10 M2 PO
[2025-06-03 08:59] VITALS: BP 119/75
== END 2025-06-03 10:49 | disposition home or self-care (01) ==
LOC: ER 17:37 → EOR 17:38
PROVIDERS: ADMIT Emergency Medicine
DX: R44.0 Auditory hallucinations (principal); S50.811A Abrasion of right forearm, initial encounter; F41.9 Anxiety disorder, unspecified; F32.A Depression, unspecified; X58.XXXA Exposure to other specified factors, initial encounter; F15.10 Other stimulant abuse, uncomplicated; J45.909 Unspecified asthma, uncomplicated; M79.7 Fibromyalgia; F17.210 Nicotine dependence, cigarettes, uncomplicated; Z79.899 Other long term (current) drug therapy; Z88.1 Allergy status to other antibiotic agents; Z88.5 Allergy status to narcotic agent; Z88.8 Allergy status to other drugs, medicaments and biological substances
CPT/HCPCS: 90715; 99285; A9270; G0378